=== PATIENT | male | born 1970 | race Caucasian/White ===

== ENCOUNTER 2023-08-02 18:13 | Outpatient (REF) | payer BC, SELFPAY ==
[2023-08-02 15:53] LABS: Abs Immature Grans 0.02 10^3/uL (0.0-0.06); Absolute Basophil Count 0.03 10^3/uL (0.0-0.2); Absolute Eosinophil Count 0.09 10^3/uL (0.0-0.7); Absolute Lymphocyte Count 1.78 10^3/uL (1.2-3.4); Absolute Monocyte Count 0.57 10^3/uL (0.1-0.8); Absolute Neutrophil Count 4.42 10^3/uL (1.2-6.7); Basophils % 0.4; Eosinophils % 1.3; HCT 43.6 % (40.0-50.0); HGB 15.2 g/dL (13.5-17.5); Immature Grans % 0.3; Lymphocytes % 25.8; MCH 35.3 pg (27.0-33.0); MCHC 34.9 % (32.0-36.0); MCV 101 fL (80-95); MPV 9.9 fL (8.0-11.0); Monocytes % 8.2; Platelet Count 286 10^3/uL (130-400); RDW 12.5 % (11.8-14.1); RDW-SD 46.7 fL; WBC 6.91 10^3/uL (4.4-10.8)
[2023-08-02 16:13] LABS: ALT 84 U/L (16-63); AST 58 U/L (15-37); Alkaline Phosphatase 62 U/L (46-116); Anion Gap 9.9 mmol/L (3-11); BUN 7 mg/dL (7-18); Bilirubin, Total 0.3 mg/dL (0.2-1.0); CO2 28.1 mmol/L (21.0-32.0); Calcium 9.4 mg/dL (8.5-10.1); Calculated LDL 138 mg/dL (<100); Chloride 102 mmol/L (98-107); Cholesterol 255 mg/dL (<200); Estimated GFR 90.56 (mL/min/1.73m2); Glucose 130 mg/dL (74-106); HDL Cholesterol 58 mg/dL (40-60); Potassium 4.5 mmol/L (3.5-5.1); Sodium 140 mmol/L (136-145); TSH (W/Ref FT4) 1.86 uIU/mL (0.36-3.74); Total Protein 7.3 g/dL (6.4-8.2); Triglyceride 295 mg/dL (<150)
== END 2023-08-02 18:14 | disposition home or self-care (01) ==
LOC: NCHCN 18:13
PROVIDERS: Visit Provider Nurse Practitioner Family
DX: I10 Essential (primary) hypertension (principal); F10.20 Alcohol dependence, uncomplicated; Z87.891 Personal history of nicotine dependence
CPT/HCPCS: 80053; 80061; 84443; 85025

== ENCOUNTER 2024-01-23 16:43 | Outpatient (REF) | payer BC, SELFPAY ==
[2024-01-23 19:44] LABS: ALT 68 U/L (16-63); AST 57 U/L (15-37); Albumin 3.9 g/dL (3.4-5.0); Alkaline Phosphatase 61 U/L (46-116); Anion Gap 11.6 mmol/L (3-11); BUN 10 mg/dL (7-18); Bilirubin, Total 0.6 mg/dL (0.2-1.0); CO2 26.4 mmol/L (21.0-32.0); CREATININE 0.9 mg/dL (0.70-1.30); Calcium 8.9 mg/dL (8.5-10.1); Chloride 103 mmol/L (98-107); Estimated GFR 102.12 (mL/min/1.73m2); Glucose 112 mg/dL (74-106); Potassium 4.1 mmol/L (3.5-5.1); Sodium 141 mmol/L (136-145); Total Protein 7.5 g/dL (6.4-8.2)
== END 2024-01-23 16:44 | disposition home or self-care (01) ==
LOC: NCHCN 16:43
PROVIDERS: Visit Provider Nurse Practitioner Family
DX: I10 Essential (primary) hypertension (principal)
CPT/HCPCS: 80053

== ENCOUNTER 2024-11-11 13:29 | Outpatient (REF) | payer BC, SELFPAY ==
[2024-11-11 15:37] LABS: ALT 70 U/L (16-63); AST 33 U/L (15-37); Albumin 4.1 g/dL (3.4-5.0); Alkaline Phosphatase 65 U/L (46-116); Anion Gap 8.6 mmol/L (3-11); BUN 9 mg/dL (7-18); Bilirubin, Total 0.44 mg/dL (0.2-1.0); CO2 29.4 mmol/L (21.0-32.0); CREATININE 0.9 mg/dL (0.70-1.30); Calcium 9.6 mg/dL (8.5-10.1); Calculated LDL 119 mg/dL (<100); Chloride 104 mmol/L (98-107); Cholesterol 209 mg/dL (<200); Estimated GFR 102.12 (mL/min/1.73m2); Glucose 132 mg/dL (74-106); HDL Cholesterol 72 mg/dL (40-60); Potassium 4.3 mmol/L (3.5-5.1); Sodium 142 mmol/L (136-145); Total Protein 7.5 g/dL (6.4-8.2); Triglyceride 94 mg/dL (<150)
[2024-11-11 15:39] LABS: Hemoglobin A1C 5.8 % (<5.7)
[2024-11-12 10:02] LABS: Hepatitis C Ab w Rflx HCV PCR Negative (Negative)
== END 2024-11-11 13:30 | disposition home or self-care (01) ==
LOC: NCHCN 13:29
PROVIDERS: PCP Nurse Practitioner Family; Visit Provider Nurse Practitioner Family
DX: I10 Essential (primary) hypertension (principal); R94.5 Abnormal results of liver function studies; E78.5 Hyperlipidemia, unspecified; R73.09 Other abnormal glucose
CPT/HCPCS: 80053; 80061; 86803; 83036

== ENCOUNTER 2025-08-25 19:03 | Outpatient (REF) | payer OTHER, SELFPAY ==
[2025-08-25 18:51] LABS: HCT 43.6 % (40.0-50.0); HGB 14.8 g/dL (13.5-17.5); MCH 34.3 pg (27.0-33.0); MCHC 33.9 % (32.0-36.0); MCV 101 fL (80-95); MPV 9.9 fL (8.0-11.0); Platelet Count 261 10^3/uL (130-400); RBC 4.31 10^6/uL (4.36-5.78); RDW 11.7 % (11.8-14.1); RDW-SD 44.1 fL; WBC 7.32 10^3/uL (4.4-10.8)
[2025-08-25 19:04] LABS: ALT 59 U/L (10-49); AST 31 U/L (<34); Albumin 4.5 g/dL (3.2-5.0); Alkaline Phosphatase 58 U/L (46-116); Anion Gap 8.2 mmol/L (3-11); BUN 13 mg/dL (9-23); Bilirubin, Total 0.60 mg/dL (0.2-1.2); CO2 28.8 mmol/L (20.0-31.0); Calcium 9.9 mg/dL (8.3-10.6); Chloride 105 mmol/L (98-107); Glucose 108 mg/dL (74-106); Potassium 4.4 mmol/L (3.5-5.1); Sodium 142 mmol/L (136-145); Total Protein 7.0 g/dL (5.7-8.2)
== END 2025-08-25 19:04 | disposition home or self-care (01) ==
LOC: NCHCN 19:03
PROVIDERS: PCP Nurse Practitioner Family; Visit Provider Nurse Practitioner Family
DX: I10 Essential (primary) hypertension (principal); R94.5 Abnormal results of liver function studies
CPT/HCPCS: 80053; 85027

== ENCOUNTER 2025-09-03 13:58 | Outpatient (CLI) | payer OTHER, SELFPAY ==
--- NOTE | 2025-09-03 14:00 | RT.EKG_ITS ---
APPROVED REPORT Exam: Resting ECG Reason for Exam: Blood Pressure Patient Location: O HR:104 bpm ECG Measurements Heart Rate 104 AXIS AZ 157 P 55 QRSd 97 QRS 50 QT 329 T 0 QTc 433 Conclusion Sinus tachycardia...rate> 99 Poor R wave progression, possible old ASMI
== END 2025-09-03 13:59 | disposition home or self-care (01) ==
PROVIDERS: PCP Nurse Practitioner Family; Visit Provider Nurse Practitioner Family
DX: I10 Essential (primary) hypertension (principal)
CPT/HCPCS: 93005; 93010

== ENCOUNTER → 2025-09-08 00:43 | Outpatient (CLI) | payer OTHER, SELFPAY ==
--- NOTE | 2025-09-08 07:30 | DI.US_ITS ---
APPROVED REPORT EXAM: Comprehensive 2D, Doppler, and color-flow Echocardiogram Patient Location: Out-Patient Chief Passenger Ship Steward/Stewardess: Nancy Emerson RDCS (AE) Indications: Hypertensive disorder, Essential primary Hypertension, Refractory blood pressure Other Information Study Quality: Adequate Conclusion Normal left ventricular wall thickness and chamber size. Ejection fraction is 60%. Wall motion is normal Normal right ventricular size and function Both atria are normal in size There is no structural or hemodynamically significant valvular disease Wall motion Left Ventricle The left ventricle is normal size. The left ventricular systolic function is normal. The left ventricular ejection fraction is within the normal range. There is normal left ventricular wall thickness. There is normal LV segmental wall motion. There is no ventricular septal defect visualized. LVEF is 60%. Right Ventricle The right ventricle is normal size. The right ventricular systolic function is normal. Atria The left atrium size is normal. The right atrium size is normal. The interatrial septum is intact with no evidence for an atrial septal defect. Aortic Valve The aortic valve is normal in structure. Aortic valve is trileaflet. There is no aortic valvular stenosis. No aortic regurgitation is present. Mitral Valve The mitral valve is normal in structure. No evidence of mitral valve stenosis. Trace mitral regurgitation. Tricuspid Valve The tricuspid valve is normal in structure. There is no tricuspid valve stenosis. Trace tricuspid regurgitation. Trace tricuspid regurgitation. Pulmonic Valve The pulmonary valve is normal in structure. There is no pulmonic valvular stenosis. There is no pulmonic valvular regurgitation. Great Vessels The aortic root is normal in size. The ascending aorta is normal in size. Aortic arch is not well visualized. IVC is normal in size and collapses >50% with inspiration. Pericardium There is no pericardial effusion. 2D Dimensions IVSD d PLAX 1.20 cm M: 0.6-1.2 Ao Root d 3.50 cm M: 3.1 - 3.7 LVPW d PLAX 1.21 cm M: 0.6 - 1.2 Ao Asc Diam d 3.41 cm M: 2.6 - 3.4 LVID d PLAX 4.20 cm M: 4.2 - 5.8 LVDs 2.90 cm M: 2.5 - 4.0 LV EF Teichholz 59.7 % FS 31.43 % LV EDV (Teich) 77.2 mL LV ESV (Teich) 31.1 mL M-Mode TAPSE 2.31 cm (M/F) >1.7 Auto EF LV EDV A4C 104.4 mL LV EDV A2C 93.2 mL LV EDV BP 99.1 mL LV ESV A4C 41.8 mL LV ESV A2C 37.2 mL LV ESV BP 39.6 mL LVEF(%) A4C 59.9 % LVEF(%) A2C 60.1 % LVEF(%) BP 60.1 % LV SV A4C 62.6 ml LV SV A2C 56.0 ml LV SV BP 59.5 ml LV CO A4C 6.2 L/min LV CO A2C 5.5 L/min LV CO BP 5.8 L/min HR A4C 98.61 BPM HR A2C 98.63 BPM LV EDV Index (BP) LA Volume LA Length A4C 4.5 cm LA Length A2C 4.8 cm LA Area A4C s 13.07 cm2 LA Area A2C s 12.79 cm2 LA Vol A4C A-L 32.35 mL LA Vol A2C A-L 28.77 mL LA Vol Biplane A-L 31.7 mL LA Vol/BSA A4C A-L LA Vol/BSA A2C A-L LA Vol/BSA BP A-L 15.8 mL/m2 LA Vol A4C MOD 30.2 mL LA Vol A2C MOD 26.7 mL LA Vol BP MOD 29.4 mL RA Volume RA Area A4C 9.5 cm2 RA ESV A4C (A-L) 19.2mL RA Vol/BSA A4C A-L RA Length A4C 4.0 cm RA ESV A4C (MOD) 17.7mL LV Diastology MV E' medial 0.083 (>0.07 m/s) MV E Vmax 0.94 (0.4-1.3 m/s) MV E/E' MED 11.28 (<14) MV A Vmax 1.05 (0.4-1.3 m/s) MV E' lateral 0.124 (>0.1 m/s) E/A Ratio 0.9 MV E/E' LAT 7.61 (<14) MV E' Average 0.103 m/s MV E/E'(average) 9.09 Aortic Valve AoV Vmax 1.56 m/s LVOT Vmax 1.35 m/s AoV Peak Grad 9.7 mmHg LVOT Peak Grad 7.3 mmHg AoV Area (Vmax) 2.95 cm2 LVOT VTI 0.215 m AoV VTI 0.259 m LVOT Mean Grad 3.3 mmHg AoV Mean Foreign. 1.05 m/s LVOT SV 73.29 mL AoV Mean Grad 5.0 mmHg LVOT Diam s 2.05 cm AoV Area (VTI) 2.83 cm2 AV Regurg Peak Gr. 9.74 mmHg Velocity Ratio 0.87 Mitral Valve MV DT 252 (160-240 msec) MV Vmax TIPS 1.05 m/s MV Mean Grad 2.9 (<2mmHg) MV VTI 0.228 m Pulmonary Valve PV Vmax 1.32 (0.5-1.5 m/s) RVOT Vmax 0.88 m/s PV Peak Grad 6.9 mmHg RVOT Peak Gr. 3.1 mmHg PV Mean Foreign 0.85 m/s RVOT VTI 0.143 m PV Mean Grad 3.4 mmHg RVOT Mean Gr. 1.4 mmHg Tricuspid Valve RA Pressure 3.00 mmHg TV S' 0.18 m/s
== END ==
PROVIDERS: PCP Nurse Practitioner Family; Visit Provider Nurse Practitioner Family
DX: I10 Essential (primary) hypertension (principal)
CPT/HCPCS: 93306